=== PATIENT | female | born 1955 ===

== ENCOUNTER 2019-12-20 19:07 | Emergency (ER) | payer OTHER ==
[2019-12-20] MEDS ORDERED: Acetaminophen/HYDROcodone 325-5 MG Tab PO ONE (19:08)
--- NOTE | 2019-12-20 19:44 | EDM.PDOC ---
ED HPI GENERAL MEDICAL PROBLEM - General Chief Complaint: Back Pain or Injury Stated Complaint: HURT RIBS Time Seen by Provider: 12/20/19 19:42 Source of Information: Reports: Patient History Limitations: Reports: No Limitations - History of Present Illness INITIAL COMMENTS - FREE TEXT/NARRATIVE: Ashly complains of rib injury last night,Slipped and fell on the left rib cage.Pain is sharp,severe,worse with cough or breathing. Has taken Tylenol nd Motrin with no relief Left Back Pain Score (Numeric/FACES): 8 - Related Data Allergies Allergy/AdvReac Type Severity Reaction Status Date / Time codeine Allergy Stomach Verified 03/30/13 15:48 Ache erythromycin base Allergy Stomach Verified 03/30/13 15:48 [Erythromycin Base] Upset Home Meds: Home Meds Albuterol [Ventolin HFA] 2 puff INH Q4H PRN 03/30/13 [History] Cyclobenzaprine [Flexeril] 12/20/19 [History] Dulaglutide [Trulicity] 1.5 mg INJECT 12/20/19 [History] Gabapentin [Gralise] 600 mg PO TID 12/20/19 [History] Levothyroxine Sodium [Synthroid] 25 mcg PO DAILY 12/20/19 [History] Omeprazole 40 mg PO ACBREAKFAST 12/20/19 [History] QUEtiapine [SEROquel] 25 mg PO DAILY 12/20/19 [History] SitaGLIPtin [Januvia] 25 mg PO DAILY 12/20/19 [History] atorvaSTATin [Lipitor] 20 mg PO DAILY 12/20/19 [History] cloNIDine HCL [Clonidine HCl ER] 0.1 mg PO DAILY 12/20/19 [History] metFORMIN [Glucophage] 500 mg PO BIDMEALS 12/20/19 [History] Social & Family History - Tobacco Use Smoking Status *Q: Current Every Day Smoker Years of Tobacco use: 40 Packs/Tins Daily: 1 - Recreational Drug Use Recreational Drug Use: No ED ROS GENERAL - Review of Systems Review Of Systems: Comprehensive ROS is negative, except as noted in HPI. ED EXAM, UPPER BACK/NECK PAIN - Physical Exam Exam: See Below Exam Limited By: No Limitations General Appearance: Alert, WD/WN Nose Exam: Normal Inspection Cardiovascular/Respiratory: Other (Tender rib cage). No: Accessory Muscle uUe, Wheezing GI/Abdominal: Normal Bowel Sounds Neurologic: cement paver II-XII nml As Tested Course - Vital Signs Last Recorded V/S: Last Vital Signs Temp 98.2 F 12/20/19 19:18 Pulse 100 12/20/19 19:18 Resp 16 12/20/19 19:18 BP 136/56 L 12/20/19 19:18 Pulse Ox 100 12/20/19 19:18 - Orders/Labs/Meds Orders: Active Orders 24 hr Category Date Time Status Ribs 2V w Chest Lt [CR] Stat Exams 12/20/19 19:41 Taken Departure - Departure Time of Disposition: 20:07 Disposition: Home, Self-Care 01 Clinical Impression: Rib pain on left side - Discharge Information Referrals: Becca Bautista SUPPORT ASSOCIATE [Primary Care Provider] - Forms: ED Department Discharge Sepsis Event Note (ED) - Evaluation Sepsis Screening Result: No Definite Risk - Focused Exam Vital Signs: Vital Signs Temp Pulse Resp BP Pulse Ox 12/20/19 19:18 98.2 F 100 16 136/56 L 100 - Problem List & Annotations (1) Rib pain on left side SNOMED Code(s): 781059666 Code(s): R07.81 - PLEURODYNIA Status: Acute Current Visit: Yes - Problem List Review Problem List Initiated/Reviewed/Updated: Yes - My Orders Last 24 Hours: My Active Orders 12/20/19 19:41 Ribs 2V w Chest Lt [CR] Stat - Assessment/Plan Last 24 Hours: My Active Orders 12/20/19 19:41 Ribs 2V w Chest Lt [CR] Stat Plan: [place] 1 tab tid prn
== END 2019-12-20 20:14 | disposition home or self-care (01) ==
LOC: FB.ED 19:07
DX: R07.81 Pleurodynia (principal); F17.210 Nicotine dependence, cigarettes, uncomplicated; Z88.5 Allergy status to narcotic agent; Z88.1 Allergy status to other antibiotic agents
CPT/HCPCS: 71101-LT; 99283; 99283-25; A9270-GY